=== PATIENT | female | born 1970 | race Asian ===

== ENCOUNTER 2019-07-19 16:30 | Emergency (ER) | payer OTHER ==
[~2019-07-19] VITALS: Ht 152.4 cm; Wt 63.9 kg
[2019-07-19 16:59] VITALS: BP 130/89
--- NOTE | 2019-07-19 17:10 | NUR ---
ROOM SERVICE WAITER: PT [id number]
== END 2019-07-19 17:32 | disposition left against medical advice (07) ==
LOC: ED 17:26
DX: N93.9 Abnormal uterine and vaginal bleeding, unspecified (principal); R53.83 Other fatigue; Z53.21 Procedure and treatment not carried out due to patient leaving prior to being seen by health care provider